=== PATIENT | female | born 2000 ===

== ENCOUNTER 2022-03-28 11:16 | Emergency (ER) | payer MEDICAID ==
[~2022-03-28] VITALS: Ht 170.2 cm; Wt 100.0 kg
[2022-03-28 11:26] VITALS: BP 145/100
== END 2022-03-28 16:06 | disposition left against medical advice (07) ==
LOC: ER 11:16
DX: M25.571 Pain in right ankle and joints of right foot (principal); Z53.21 Procedure and treatment not carried out due to patient leaving prior to being seen by health care provider
CPT/HCPCS: 73610; 73630